=== PATIENT | male | born 1945 | race Asian ===

== ENCOUNTER 2019-10-20 10:48 | Emergency (ER) | payer MEDICARE, SELFPAY ==
--- NOTE | 2019-10-20 11:01 | ED.GENADULT ---
HPI - General Adult General Chief complaint: Wound/Laceration Stated complaint: Bee stung Time Seen by Provider: 10/20/19 11:16 Source: patient Mode of arrival: ambulatory Limitations: no limitations History of Present Illness HPI narrative: 74-year-old male patient presents to the [facility] with complaints of left middle finger swelling and pain. Patient states that he was stung twice by a bee about 2 days ago. Patient denies taking any medications for his symptoms so far. Patient states he is concerned because he there is some more bruising noted, swelling and tightness to the finger. Denies any fevers, body aches or chills. Related Data Home Medications Medication Instructions Recorded Confirmed omeprazole 20 mg PO BID 10/20/19 10/20/19 Review of Systems Review of Systems: Narrative: CONSTITUTIONAL: Denies fever, chills, or sweats. EYES: Denies visual changes, redness, or discharge. ENT: Denies rhinorrhea, congestion, sore throat, or otalgia. CARDIOVASCULAR: Denies chest pain, palpitations, or edema. RESPIRATORY: Denies cough or dyspnea. GASTROINTESTINAL: Denies abdominal pain, nausea, vomiting, or diarrhea. GENITOURINARY: Denies dysuria or hematuria. SKIN: Denies rash or itching. Positive swelling, pain and bruising to left middle finger from bee stings x2 days MUSCULOSKELETAL: Denies back pain, joint pain, or myalgia. NEUROLOGIC: Denies headache, numbness, or weakness. PSYCHIATRIC: Denies anxiety or depression. Exam Narrative: Exam Narrative: GENERAL: Well-appearing, well-nourished, and in no acute distress. HEAD: Normocephalic, atraumatic. EYES: PERRLA and EOMI. ENT: Nares clear, no rhinorrhea or epistaxis. Mucous membranes moist. NECK: Supple. No lymphadenopathy CHEST: Clear to auscultation. No respiratory distress. HEART: Regular rate and rhythm. No murmur heard. Normal peripheral pulses. ABDOMEN: Soft, nontender, nondistended, normal active bowel sounds. EXTREMITIES: Normal range of motion. No edema. SKIN: Patient has swelling and tightness noted to the left middle finger that includes the DIP and PIP joints of the middle finger. The swelling and tightness extend all the way down to the proximal phalanges but does not include the MCP joint of the middle finger. There is some bruising noted to the side of the distal and middle phalanges. There is some warmth noted to the area along with some erythema. NEURO: No focal deficits. Alert and oriented x3. Course Vital Signs Vital signs: Vital Signs Temperature 36.2 C L 10/20/19 11:06 Pulse Rate 78 10/20/19 11:06 Respiratory Rate 16 10/20/19 11:06 Blood Pressure 130/75 10/20/19 11:06 Pulse Oximetry 99 10/20/19 11:06 Temperature 36.2 C L 10/20/19 11:06 Pulse Rate 78 10/20/19 11:06 Respiratory Rate 16 10/20/19 11:06 Blood Pressure 130/75 10/20/19 11:06 Pulse Oximetry 99 10/20/19 11:06 Vital signs reviewed. Medical Decision Making Differential Diagnosis Differential Diagnosis: Differential diagnosis: Abscess, cellulitis, hidradenitis, laceration, puncture wound. Discussed with patient that I am concerned that there could be some cellulitis possibly starting to the middle finger due to the warmth, erythema and swelling. Discussed with him we will go ahead and start him on an antibiotic for this and I will also give him an antihistamine to help with the reaction. Discussed with him he can also take some Benadryl if the reaction continues to get worse, use [id number] anti-itch cream. Discussed with him that he can use ice to the area to help with the swelling and pain as well. Patient verbalized understanding denies any other questions or concerns at this time. Vital Signs Vital Signs: Vital Signs Temperature 36.2 C L 10/20/19 11:06 Pulse Rate 78 10/20/19 11:06 Respiratory Rate 16 10/20/19 11:06 Blood Pressure 130/75 10/20/19 11:06 Pulse Oximetry 99 10/20/19 11:06 Temperature 36.2 C L 10/20/19 11
[2019-10-20 11:06] VITALS: BP 130/75; PULSE 78; RESP 16; TEMP 36.2; O2SAT 99
== END 2019-10-20 11:25 | disposition home or self-care (01) ==
PROVIDERS: Emergency Provider Nurse Practitioner Family
DX: L03.012 Cellulitis of left finger (principal); T63.441A Toxic effect of venom of bees, accidental (unintentional), initial encounter
CPT/HCPCS: 99213; G0463

== ENCOUNTER 2020-02-04 08:26 | Outpatient (CLI) | payer MEDICARE, SELFPAY ==
--- NOTE | 2020-02-04 | ECHO_ITS ---
Patient Info Name: Jr Villalobos Age: 74 years : 1945 Gender: Male Ht: 70 in Wt: 160 lbs BSA: 1.89 m2 HR: 66 bpm BP: 136 / 82 mmHg Heart Rhythm: Sinus Rhythm Technical Quality: Good Exam Date: 02/04/2020 9:10 AM Exam Location: [facility] Pul[facility] Patient Status: Outpatient Admit Date: 02/04/2020 Staff Ordering Physician: Mike Carr MD Customer Relations Coordinator: Dayne Patel RDCS, RT Attending Provider: Mike Carr MD Referring Physician: Bruno OLSON; Exam Type: CA echo doppler color flow Study Info Indications R01.1 - Cardiac murmur, unspecified Complete two-dimensional, color flow and Doppler transthoracic echocardiogram is performed. Strain analysis performed. Summary 1. Complete two-dimensional, color flow and Doppler transthoracic echocardiogram is performed. 2. There is mild concentric increased left ventricular wall thickness. 3. Left ventricular systolic function is normal, estimated at 60-65%. 4. There is severe aortic valve stenosis with a peak velocity of 357 cm/s, mean gradient of 30 mmHg, and aortic valve area of 0.8 cm2. 5. There is mild aortic valve regurgitation. Left Ventricle Left ventricular chamber dimension is normal. Left ventricular systolic function is normal, estimated at 60-65%. There is mild concentric increased left ventricular wall thickness. The left ventricular diastolic function is grade I diastolic dysfunction. Right Ventricle Right ventricular chamber dimension is normal. Left Atria Left atrial chamber dimension is normal. Right Atria Right atrial chamber dimension is normal. Aortic Valve The aortic valve is trileaflet. There is severe aortic valve stenosis with a peak velocity of 357 cm/s, mean gradient of 30 mmHg, and aortic valve area of 0.8 cm2. There is mild aortic valve regurgitation. Pulmonic Valve The pulmonic valve is not well visualized. Mitral Valve The mitral valve has normal leaflets. There is trace mitral valve regurgitation. The mitral valve annulus is mildly calcified. Tricuspid Valve The tricuspid valve leaflets are normal. There is trace tricuspid valve regurgitation. Pericardium/Pleural The pericardium appears normal. Aorta The aortic root size at the sinus of Valsalva is normal. Left Ventricular Outflow Tract Name Value Normal LVOT 2D LVOT Diameter 2.2 cm LVOT Doppler LVOT Peak Gradient 2 mmHg LVOT Mean Gradient 2 mmHg LVOT VTI 21 cm LVOT VTI/AV VTI Ratio 0.3 LVOT Stroke Volume 83 ml LVOT CO 5.0 l/min LVOT CI 2.6 l/min/m2 Mitral Valve Name Value Normal MV Doppler MV Decel Aiken 195 cm/s2 MV PHT
== END 2020-02-04 08:27 | disposition home or self-care (01) ==
PROVIDERS: PCP Emergency Medicine; Visit Provider Emergency Medicine
DX: R01.1 Cardiac murmur, unspecified (principal); I35.0 Nonrheumatic aortic (valve) stenosis; I35.1 Nonrheumatic aortic (valve) insufficiency
CPT/HCPCS: 93306

== ENCOUNTER 2020-03-18 07:54 | Outpatient (CLI) | payer MEDICARE, SELFPAY ==
[2020-03-18 09:00] LABS: Prostate Specific Antigen 0.9 ng/mL (< OR = 4.0)
== END 2020-03-18 07:55 | disposition home or self-care (01) ==
PROVIDERS: PCP Emergency Medicine
DX: N40.1 Benign prostatic hyperplasia with lower urinary tract symptoms (principal)
CPT/HCPCS: 36415; 84153

== ENCOUNTER 2020-04-28 13:31 | Outpatient (CLI) | payer MEDICARE, SELFPAY | END 2020-04-28 13:32 | disposition home or self-care (01) | LOC: ANHCOVIDVC 13:32 | PROVIDERS: PCP Emergency Medicine; Visit Provider Emergency Medicine | DX: Z23 Encounter for immunization (principal) | CPT/HCPCS: 0001A; 91300 ==

== ENCOUNTER 2020-05-19 13:32 | Outpatient (CLI) | payer MEDICARE, SELFPAY | END 2020-05-19 13:33 | disposition home or self-care (01) | LOC: ANHCOVIDVC 13:32 | PROVIDERS: PCP Emergency Medicine; Visit Provider Emergency Medicine | DX: Z23 Encounter for immunization (principal) | CPT/HCPCS: 0002A; 91300 ==

== ENCOUNTER → 2020-07-12 01:51 | Outpatient (CLI) | payer MEDICARE, SELFPAY ==
[2020-07-12 19:56] LABS: SARS-CoV-2 RNA PCR Negative
== END ==
PROVIDERS: PCP Emergency Medicine; Visit Provider Internal Medicine Gastroenterology
DX: Z01.812 Encounter for preprocedural laboratory examination (principal); Z20.822 Contact with and (suspected) exposure to COVID-19
CPT/HCPCS: C9803; U0003; U0005

== ENCOUNTER 2020-07-16 01:45 | Day surgery (SDC) | payer MEDICARE, SELFPAY ==
[2020-07-07 14:32] VITALS: BMI 23.1
[2020-07-16 08:21] VITALS: BP 123/72; PULSE 66; RESP 20; TEMP 36.6; O2SAT 99; BMI 23.1
--- NOTE | 2020-07-16 08:33 | WPDANESEPPF ---
Anes - Initial Pre Proc Eval Procedure: Operation Date: 07/16/20 09:00 Proposed Procedures p Esophagogastroduodenoscopy & Screen Colonoscopy - Chuck Stock MD Date/Time: 07/16/20 08:33 Surgeon: Chuck Stock MD Pre Op Diagnosis: hx of colon polyps, gerd Patient Data Age: 75 Gender: M Height: 5 ft 10 in Weight: 73.3 kg Last Vital Signs Temp 98 F 07/16/20 08:21 Pulse 66 07/16/20 08:21 Resp 20 07/16/20 08:21 BP 123/72 07/16/20 08:21 Pulse Ox 99 07/16/20 08:21 Allergies Allergy/AdvReac Type Severity Reaction Status Date / Time No Known Allergies Allergy Verified 07/16/20 08:20 Home Medications Medication Instructions Recorded Confirmed Type omeprazole 20 mg PO BID 10/20/19 07/16/20 History atorvastatin 80 mg tablet 80 mg PO DAILY 01/21/20 07/16/20 History lisinopril 20 mg tablet 20 mg PO DAILY 01/21/20 07/16/20 History tamsulosin 0.4 mg capsule 0.4 mg PO DAILY 04/18/20 07/16/20 History aspirin [Adult Aspirin EC Low 81 mg PO DAILY 07/07/20 07/16/20 History Strength] Patient hx anesthesia problems: none Family hx anesthesia problems: none PMFSH Past Medical History Medical History (Updated 07/08/20 @ 12:07 by WILLIAM Marquez) Colon cancer screening Dizziness High cholesterol Medial meniscus tear Nonrheumatic aortic (valve) stenosis Phlegm in throat Right knee pain Stroke Wears glasses Social History Social History (Updated 07/08/20 @ 08:27 by Jeanne Funk, RT(R)) Smoking packs per day: 1 Smoking cigarettes per day: 20.0 Smoking status: Former smoker Tobacco type: cigarettes Smoking end date: 02/21/85 Alcohol intake: current Drinks per week: 4 Alcohol use details: WINE Substance use: never Substance use type: does not use Living arrangements: with family Gender identity (if verbalized by the patient): Male Spiritual care concerns: No Anes - Eval Final PreProcedure Day of Procedure 07/16/20 08:33 Patient weight: normal Heart: regular rate and rhythm and murmur Lungs: clear to auscultation Airway: Mallampati scale Neurological: alert and oriented Last oral intake: >/= 8 hours ASA classification: III Emergent: no Anesthetic plan: proceed Anesthesia type and monitoring: general GIVS and standard monitoring Informed Consent: The patient's anesthetic plan and its attendant risks and benefits were discussed with the patient/family/POA. Questions were solicited and answers provided to the satisfaction of the patient/family/POA.
[2020-07-16] MEDS: LACTATED RINGERS 1,000 ML 150 ML IV CONT (08:42)
--- NOTE | 2020-07-16 08:47 | PM.HPGS ---
History of Present Illness History of Present Illness Consent: Risks, benefits, and alternatives have been discussed and questions answered. Patient agrees to proceed with procedure. Chief complaint: hx of colon polyps, gerd Narrative: Jr Villalobos is a 75 year old male with gerd on omeprazole, also history of colon polyps due for another colonoscopy Review of Systems Constitutional: Constitutional: Denies headache(s) and Denies weakness Eyes: Eyes: Denies blurry vision ENT: Reports Normal hearing present, Denies headache(s) and Denies neck pain Cardiovascular: Cardiovascular: Denies chest pain and Denies dyspnea Respiratory: Respiratory: Denies dyspnea Gastrointestinal: Gastrointestinal: Reports no additional gastrointestinal complaints Genitourinary: Genitourinary: Denies dysuria Musculoskeletal: Musculoskeletal: Denies neck pain Integumentary/Breasts: Skin/Breast: Denies dry skin Neurologic: Reports Normal hearing present, Denies headache(s) and Denies weakness Psychiatric: Psychiatric: Denies anxiety Endocrine: Endocrine: Denies change in body appearance Hematologic/Lymphatic: Hematologic/Lymphatic: Denies easy bleeding Allergic/Immunologic: Allergic/Immunologic: Denies urticaria PMF Past Medical History Medical History (Updated 07/16/20 @ 08:47 by Chuck Stock MD) Colon cancer screening Dizziness GERD (gastroesophageal reflux disease) High cholesterol Medial meniscus tear Nonrheumatic aortic (valve) stenosis Phlegm in throat Right knee pain Stroke Wears glasses Social History Social History (Updated 07/08/20 @ 08:27 by Jeanne Funk, RT(R)) Smoking packs per day: 1 Smoking cigarettes per day: 20.0 Smoking status: Former smoker Tobacco type: cigarettes Smoking end date: 02/21/85 Alcohol intake: current Drinks per week: 4 Alcohol use details: WINE Substance use: never Substance use type: does not use Living arrangements: with family Gender identity (if verbalized by the patient): Male Spiritual care concerns: No Meds Home Medications and Allergies Home Medications Medication Instructions Recorded Confirmed Type omeprazole 20 mg PO BID 10/20/19 07/16/20 History atorvastatin 80 mg tablet 80 mg PO DAILY 01/21/20 07/16/20 History lisinopril 20 mg tablet 20 mg PO DAILY 01/21/20 07/16/20 History tamsulosin 0.4 mg capsule 0.4 mg PO DAILY 04/18/20 07/16/20 History aspirin [Adult Aspirin EC Low 81 mg PO DAILY 07/07/20 07/16/20 History Strength] Allergies Allergy/AdvReac Type Severity Reaction Status Date / Time No Known Allergies Allergy Verified 07/16/20 08:20 Vital Signs Vital Signs - 24 hr 07/16/20 08:21 Temperature 98 F Pulse Rate 66 Respiratory Rate 20 Blood Pressure 123/72 Pulse Oximetry 99 Exam Const: General: comfortable and no acute distress HENMT: General nose exam: Normal nares present Eyes: General: appearance normal, both eyes and all related structures Neck: Neck: no JVD Resp: Auscultation: clear to auscultation bilaterally Cardio: Rate: regular rate Rhythm: regular rhythm GI: Inspection: non-distended GI Palp: Yes Soft to palpation Skin: General skin exam: normal color Neuro: General: gait normal Speech: normal speech Extrem: General: normal to inspection Psych: Mental Status: mental status grossly normal Assessment and Plan Assessment and plan (1) GERD (gastroesophageal reflux disease): Code(s): K21.9 - Gastro-esophageal reflux disease without esophagitis Status: Acute Assessment and Plan: egd (2) Colon cancer screening: Code(s): Z12.11 - Encounter for screening for malignant neoplasm of colon Status: Acute Assessment and Plan: colonoscopy
[2020-07-16] MEDS: BENZOCAINE (*SP) 60 ML SPRAY CAN (HURRICAINE) 1 SPRAY MUCOUS MEM (08:53)
[2020-07-16 09:15] VITALS: BP 118/67; PULSE 60; RESP 16; O2SAT 99
[2020-07-16 09:25] VITALS: BP 136/81; PULSE 67; RESP 18; O2SAT 99
[2020-07-16 09:35] VITALS: BP 137/71; PULSE 62; RESP 14; O2SAT 99
== END 2020-07-16 09:48 | disposition home or self-care (01) ==
PROVIDERS: PCP Emergency Medicine; Visit Provider Internal Medicine Gastroenterology
PROC: 0DJ08ZZ Inspection of Upper Intestinal Tract, Via Natural or Artificial Opening Endoscopic (ICD-10-PCS; CPT 43235; principal; 2020-07-16 09:00)
DX: Z12.11 Encounter for screening for malignant neoplasm of colon (principal); D12.3 Benign neoplasm of transverse colon; D12.5 Benign neoplasm of sigmoid colon; K57.30 Diverticulosis of large intestine without perforation or abscess without bleeding; K29.50 Unspecified chronic gastritis without bleeding; K21.9 Gastro-esophageal reflux disease without esophagitis; I35.0 Nonrheumatic aortic (valve) stenosis; E78.00 Pure hypercholesterolemia, unspecified; Z86.73 Personal history of transient ischemic attack (TIA), and cerebral infarction without residual deficits; Z87.891 Personal history of nicotine dependence; Z86.010 Personal history of colon polyps
CPT/HCPCS: 45385; 43239; 88305; J2001; J2704; J7120

== ENCOUNTER → 2020-07-18 13:32 | Outpatient (CLI) | payer MEDICARE, SELFPAY ==
--- NOTE | ~2020-07-18 | MR_ITS ---
EXAMINATION: MR knee RT wo con DATE: 07/18/2020 14:46 INDICATION: 6 months of medial right knee pain TECHNIQUE: Magnetic resonance imaging (MRI) of the right knee was performed without intravenous contr ast. Sequences included coronal PD-weighted FSE, coronal PD-weighted FS FSE, sagittal T2-weighted FS E, sagittal PD-weighted FS FSE and axial PD weighted fat saturated FSE. COMPARISON: Right knee radiographs dated 07/07/2020 FINDINGS: Medial compartment: Longitudinal horizontal tear extending to the inferior articular surface of the body and posterior ho rn of the medial meniscus. There is complex at the meniscal body with a secondary vertically oriented radial versus parrot beak configuration tear plane. Diffuse partial thickness cartilage loss with sm ooth chondral surface throughout all but the posterior most weightbearing medial femoral condyle. Sma ll region of deep chondral ulceration with minimal underlying cortical irregularity at the posterior weightbearing medial femoral condyle. Partial thickness chondral ulceration with underlying subarticu lar cystic change and edema at the medial rim of the medial tibial plateau in the region of the compl ex meniscal tear. Lateral compartment: Lateral meniscus is normal. Articular cartilage is normal. Patellofemoral compartment: Articular cartilage is normal. Ligaments and tendons: Anterior and posterior cruciate ligaments are normal. Medial collateral ligament is normal. Mild thic kening and increased signal without surrounding edema at the proximal fibular collateral ligament con sistent with mild scarring related to chronic sprain. The extensor mechanism is normal. The visualize d medial and lateral hamstring tendons as well as the iliotibial band are normal. Fluid: Physiologic amount of fluid in the joint space. No loose osteochondral bodies identified. Osseous/other: Normal marrow signal siphon the previous noted mild subarticular edema at the medial tibial plateau. No fracture or pathologic marrow replacing process. IMPRESSION: 1. Complex medial meniscal tear. 2. 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 3. Mild scarring consistent with chronic sprain at the proximal fibular collateral ligament. Reviewed, dictated and finalized at location A. IMPRESSION: 1. Complex medial meniscal tear. 2. 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 3. Mild scarring consistent with chronic sprain at the proximal fibular collate ral ligament.
== END ==
PROVIDERS: PCP Emergency Medicine; Visit Provider Nurse Practitioner Family
DX: S83.241A Other tear of medial meniscus, current injury, right knee, initial encounter (principal); M17.11 Unilateral primary osteoarthritis, right knee
CPT/HCPCS: 73721

== ENCOUNTER 2020-08-07 12:38 | Outpatient (CLI) | payer MEDICARE, SELFPAY ==
--- NOTE | 2020-08-07 12:50 | ECHO_ITS ---
Patient Info Name: Jr Villalobos Age: 75 years : 1945 Gender: Male Ht: 70 in Wt: 160 lbs BSA: 1.89 m2 HR: 61 bpm BP: 148 / 77 mmHg Technical Quality: Good Exam Date: 08/07/2020 1:25 PM Exam Location: [facility] Patient Status: Outpatient Admit Date: 08/07/2020 Staff Ordering Physician: Dalton Su DO Headwaiter/Headwaitress: Michelle Garces RDCS Attending Provider: Dalton Su DO Referring Physician: Georges IRVING; Exam Type: CA echo dop color flow w con Study Info Indications - NON RHEUMATIC AORTIC VALVE STENOSIS Complete two-dimensional, color flow and Doppler transthoracic echocardiogram is performed. Summary 1. Complete two-dimensional, color flow and Doppler transthoracic echocardiogram is performed. 2. Left ventricular chamber dimension is normal. 3. Left ventricular systolic function is normal, estimated at 60-65%. 4. There is mildly increased left ventricular wall thickness. 5. The left ventricular diastolic function is grade I diastolic dysfunction. 6. E/e' 14 is mildly elevated. 7. Global longitudinal strain is normal at -17.9%. 8. Left atrial chamber dimension is mildly enlarged. 9. Right atrial chamber dimension is mildly enlarged. 10. There is severe aortic valve sclerosis. 11. There is mild aortic valve regurgitation. 12. There is severe aortic valve stenosis with a peak velocity of 363.19 cm/s, mean gradient of 37 mmHg, and aortic valve area of 1.09 cm2. The valve appears to be more stenotic than the measured valve area. 13. The mitral valve has moderately calcified annulus. 14. There is mild mitral valve regurgitation. 15. There is trace tricuspid valve regurgitation. 16. No pulmonary hypertension, estimated pulmonary arterial systolic pressure is 23 mmHg. Left Ventricle E/e' 14 is mildly elevated. Global longitudinal strain is normal at -17.9%. Left ventricular chamber dimension is normal. Left ventricular systolic function is normal, estimated at 60-65%. There is mildly increased left ventricular wall thickness. The left ventricular diastolic function is grade I diastolic dysfunction. Right Ventricle Right ventricular chamber dimension is normal. Right ventricular systolic function is normal. Left Atria Left atrial chamber dimension is mildly enlarged. Right Atria Right atrial chamber dimension is mildly enlarged. Aortic Valve There is severe aortic valve stenosis with a peak velocity of 363.19 cm/s, mean gradient of 37 mmHg, and aortic valve area of 1.09 cm2. The valve appears to be more stenotic than the measured valve area. The aortic valve is not well visualized. There is severe aortic valve sclerosis. There is mild aortic valve regurgitation. Pulmonic Valve There is no pulmonic regurgitation. Mitral Valve The mitral valve has moderately calcified annulus. There is no mitral valve stenosis. There is mild mitral valve regurgitation. Tricuspid Valve There is trace tricuspid valve regurgitation. No pulmonary hypertension, estimated pulmonary arterial systolic pressure is 23 mmHg. Pericardium/Pleural There is no pericardial effusion. Inferior Vena Cava Normal inferior vena cava with >50% collapse upon inspiration consistent with normal right atrial pressure, 5 mmHg. Aorta The aortic root size at the sinus of Valsalva is normal. Left Ventricular Outflow Tract Name Value Normal
== END 2020-08-07 12:39 | disposition home or self-care (01) ==
PROVIDERS: PCP Emergency Medicine; Visit Provider Internal Medicine Cardiovascular Disease
DX: I35.0 Nonrheumatic aortic (valve) stenosis (principal); I35.8 Other nonrheumatic aortic valve disorders; I35.1 Nonrheumatic aortic (valve) insufficiency; I34.0 Nonrheumatic mitral (valve) insufficiency
CPT/HCPCS: C8929

== ENCOUNTER 2020-11-17 08:51 | Outpatient (CLI) | payer MEDICARE, SELFPAY ==
[2020-11-17 09:17] LABS: Add Urine Microscopic? YES; Appearance Urine Clear (Clear); Bilirubin Urine Negative (Negative); Blood Urine Negative (Negative); Color Urine Yellow (Yellow); Glucose Urine UA Negative (Negative); Ketones Urine Negative (Negative); Leukocyte Esterase Ur Negative LEU/UL (NEGATIVE); Mucus Urine Rare /lpf; Nitrate Urine Negative (Negative); Protein Urine Negative (Negative); RBC Urine 0-2 /hpf (0-2); Specific Grav Ur 1.017 (1.001-1.035); Squamous Epithelial Cell Urine Rare /hpf (Few); Urobilinogen Urine Negative mg/dL (<2.0); WBC Urine 0-3 /hpf (0-3)
[2020-11-17 09:25] LABS: Alanine Aminotransferase 50 U/L (4-50); Albumin Level 4.5 g/dL (3.5-5.1); Alkaline Phosphatase 52 U/L (38-126); Anion Gap 6 mmol/L (8-16); Aspartate Amino Transferase 32 U/L (17-59); Bilirubin,Total 1.2 mg/dL (0.2-1.3); Blood Urea Nitrogen 16 mg/dL (9-20); Calcium 8.8 mg/dL (8.4-10.2); Carbon Dioxide 27 mmol/L (22-30); Chloride 105 mmol/L (98-107); Estimated Glomerular Filt Rate > 60; Glucose 105 mg/dL (65-110); Potassium 4.4 mmol/L (3.4-5.0); Sodium 138 mmol/L (137-145)
== END 2020-11-17 08:52 | disposition home or self-care (01) ==
PROVIDERS: PCP Family Medicine; Visit Provider Family Medicine
DX: E78.5 Hyperlipidemia, unspecified (principal); R82.81 Pyuria
CPT/HCPCS: 36415; 80053; 81001

== ENCOUNTER 2021-02-23 12:47 | Outpatient (CLI) | payer MEDICARE, SELFPAY ==
--- NOTE | 2021-02-23 13:03 | ECHO_ITS ---
Patient Info Name: Jr Villalobos Age: 75 years : 1945 Gender: Male Ht: 70 in Wt: 165 lbs BSA: 1.93 m2 HR: 58 bpm BP: 147 / 77 mmHg Exam Date: 02/23/2021 1:15 PM Exam Location: [facility] Pul[facility] Patient Status: Outpatient Admit Date: 02/23/2021 Staff Ordering Physician: Dalton Su DO Drafter Apprentice: Dayne Patel, VICKIE, RT Attending Provider: Dalton Su DO Referring Physician: Georges IRVING; Exam Type: CA echo doppler color flow Study Info Indications I35.8 - Other nonrheumatic aortic valve disorders Complete two-dimensional, color flow and Doppler transthoracic echocardiogram is performed. Strain analysis performed. Summary 1. Complete two-dimensional, color flow and Doppler transthoracic echocardiogram is performed. 2. Left ventricular chamber dimension is normal. 3. Left ventricular systolic function is normal, estimated at 60-65%. 4. There is moderately increased left ventricular wall thickness. 5. The left ventricular diastolic function is normal. 6. E/e' 9 is minimally elevated. 7. Global longitudinal strain is abnormal at -13.9%. 8. Left atrial chamber dimension is mildly enlarged. 9. There is severe aortic valve sclerosis. 10. There is severe aortic valve stenosis with a peak velocity of 375 cm/s, mean gradient of 28 mmHg, and aortic valve area of 0.9 cm2. 11. There is mild aortic valve regurgitation. 12. The mitral valve has moderately calcified annulus. 13. Dilated inferior vena cava with >50% collapse upon inspiration consistent with elevated right atrial pressure, 10 mmHg. Left Ventricle E/e' 9 is minimally elevated. Global longitudinal strain is abnormal at -13.9%. Left ventricular chamber dimension is normal. Left ventricular systolic function is normal, estimated at 60-65%. There is moderately increased left ventricular wall thickness. The left ventricular diastolic function is normal. Right Ventricle Right ventricular systolic function is normal and with normal TAPSE 2.4 cm. Right ventricular chamber dimension is normal. Left Atria Left atrial chamber dimension is mildly enlarged. Right Atria Right atrial chamber dimension is normal. Aortic Valve The aortic valve is trileaflet. There is severe aortic valve sclerosis. There is severe aortic valve stenosis with a peak velocity of 375 cm/s, mean gradient of 28 mmHg, and aortic valve area of 0.9 cm2. There is mild aortic valve regurgitation. Pulmonic Valve There is no pulmonic regurgitation. Mitral Valve The mitral valve has moderately calcified annulus. There is no mitral valve stenosis. There is no mitral valve regurgitation. Tricuspid Valve There is no tricuspid valve regurgitation. Pericardium/Pleural There is no pericardial effusion. Inferior Vena Cava Dilated inferior vena cava with >50% collapse upon inspiration consistent with elevated right atrial pressure, 10 mmHg. Aorta The aortic root size at the sinus of Valsalva is normal. Left Ventricular Outflow Tract Name Value Normal LVOT 2D LVOT Diameter 2.2 cm LVOT Doppler LVOT Peak Gradient 2 mmHg LVOT Mean Gradient
== END 2021-02-23 12:48 | disposition home or self-care (01) ==
PROVIDERS: PCP Family Medicine; Visit Provider Internal Medicine Cardiovascular Disease
DX: I35.0 Nonrheumatic aortic (valve) stenosis (principal); I35.2 Nonrheumatic aortic (valve) stenosis with insufficiency
CPT/HCPCS: 93306

== ENCOUNTER 2021-03-12 08:14 | Outpatient (CLI) | payer MEDICARE, SELFPAY ==
[2021-03-12 08:49] LABS: Cholesterol 122 mg/dL (0-200); HDL Direct 47 mg/dL; Triglycerides 89 mg/dL (<150)
[2021-03-12 08:59] LABS: LDL Cholesterol Direct 51 mg/dL
== END 2021-03-12 08:15 | disposition home or self-care (01) ==
PROVIDERS: PCP Family Medicine; Visit Provider Internal Medicine Cardiovascular Disease
DX: E78.5 Hyperlipidemia, unspecified (principal)
CPT/HCPCS: 36415; 80061

== ENCOUNTER 2021-09-29 08:39 | Outpatient (CLI) | payer MEDICARE, SELFPAY ==
--- NOTE | 2021-09-29 08:54 | ECHO_ITS ---
Patient Info Name: Jr Villalobos Age: 76 years : 1945 Gender: Male Ht: 70 in Wt: 161 lbs BSA: 1.90 m2 HR: 79 bpm BP: 123 / 62 mmHg Technical Quality: Good Exam Date: 09/29/2021 9:18 AM Exam Location: [facility] Patient Status: Outpatient Admit Date: 09/29/2021 Staff Ordering Physician: Dalton Su DO Lawyer Real Estate: Amy Forde RDCS Attending Provider: Dalton Su DO Referring Physician: Georges IRVING; Exam Type: CA echo doppler color flow Study Info Indications I35.1 - Nonrheumatic aortic (valve) insufficiency Complete two-dimensional, color flow and Doppler transthoracic echocardiogram is performed. Summary 1. Complete two-dimensional, color flow and Doppler transthoracic echocardiogram is performed. 2. Left ventricular chamber dimension is normal. 3. Left ventricular systolic function is normal, estimated at 65-70%. 4. There is mildly increased left ventricular wall thickness. 5. The left ventricular diastolic function is grade I diastolic dysfunction. 6. E/e' 7 is not elevated. 7. There is severe aortic valve sclerosis. 8. There is severe aortic valve stenosis by visual estimation with a peak velocity of 399 cm/s, mean gradient of 40 mmHg, and aortic valve area of 1.2 cm2. 9. There is mild to moderate aortic valve regurgitation. 10. The mitral valve has moderately calcified annulus. 11. Dilated inferior vena cava with >50% collapse upon inspiration consistent with elevated right atrial pressure, 10 mmHg. Left Ventricle E/e' 7 is not elevated. Left ventricular chamber dimension is normal. Left ventricular systolic function is normal, estimated at 65-70%. There is mildly increased left ventricular wall thickness. The left ventricular diastolic function is grade I diastolic dysfunction. Right Ventricle Right ventricular chamber dimension is normal. Right ventricular systolic function is normal. Left Atria Left atrial chamber dimension is normal. Right Atria Right atrial chamber dimension is normal. Aortic Valve There is severe aortic valve stenosis by visual estimation with a peak velocity of 399 cm/s, mean gradient of 40 mmHg, and aortic valve area of 1.2 cm2. The aortic valve is trileaflet. There is severe aortic valve sclerosis. There is mild to moderate aortic valve regurgitation. Pulmonic Valve There is no pulmonic regurgitation. Mitral Valve The mitral valve has moderately calcified annulus. There is no mitral valve stenosis. There is no mitral valve regurgitation. Tricuspid Valve There is no tricuspid valve regurgitation. Pericardium/Pleural There is no pericardial effusion. Inferior Vena Cava Dilated inferior vena cava with >50% collapse upon inspiration consistent with elevated right atrial pressure, 10 mmHg. Aorta The aortic root size at the sinus of Valsalva is normal. Left Ventricular Outflow Tract Name Value Normal LVOT 2D LVOT Diameter 2.5 cm LVOT Doppler LVOT Peak Velocity 106 cm/s LVOT Peak Gradient 3 mmHg LVOT Mean Gradient 2 mmHg LVOT VTI
== END 2021-09-29 08:40 | disposition home or self-care (01) ==
PROVIDERS: PCP Family Medicine; Visit Provider Internal Medicine Cardiovascular Disease
DX: I35.1 Nonrheumatic aortic (valve) insufficiency (principal)
CPT/HCPCS: 93306

== ENCOUNTER 2021-11-30 07:34 | Outpatient (CLI) | payer MEDICARE, SELFPAY ==
--- NOTE | ~2021-11-30 | XR_ITS ---
EXAMINATION:[id number] DATE: 11/30/2021 08:14 INDICATION: Neck pain TECHNIQUE: AP, lateral, lateral swimmers and odontoid views of the cervical spine are provided. COMPARISON: None FINDINGS: Alignment is normal. The odontoid is intact. No fracture is identified. The vertebral body heights are normal. There is severe loss of intervertebral disc space height at C4-5 and C6-7 and mod erate loss of disc space height at C5-6. Small degenerative osteophytes project from the anterior end plates of multiple vertebral bodies. 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 Prevertebral soft tissues are normal. IMPRESSION: 1. Severe cervical spondylosis without acute findings. Reviewed, dictated and finalized at location A.
[2021-11-30 08:25] LABS: Hematocrit 39.8 % (42.0-52.0); Hemoglobin 12.8 g/dL (14.0-18.0); Mean Corpuscular HGB Conc 32.2 g/dl (32-36); Mean Corpuscular Hemoglobin 31.1 pg (26-34); Mean Corpuscular Volume 96.6 fl (80-100); Mean Platelet Volume 9.6 fl (7.4-10.4); Platelet Count Result 192 k/mm3 (150-375); Red Blood Count 4.12 M/mm3 (4.6-6.20); White Blood Count 4.8 K/mm3 (4.5-10.0)
[2021-11-30 08:38] LABS: Alanine Aminotransferase 28 U/L (6-50); Albumin Level 4.1 g/dL (3.5-5.1); Alkaline Phosphatase 72 U/L (38-126); Anion Gap 6 mmol/L (8-16); Aspartate Amino Transferase 32 U/L (17-59); Bilirubin,Total 0.9 mg/dL (0.2-1.3); Blood Urea Nitrogen 15 mg/dL (9-20); Calcium 8.9 mg/dL (8.4-10.2); Carbon Dioxide 29 mmol/L (22-30); Chloride 106 mmol/L (98-107); Cholesterol 150 mg/dL (0-200); Estimated Glomerular Filt Rate > 60; Glucose 98 mg/dL (65-110); HDL Direct 47 mg/dL; Potassium 4.4 mmol/L (3.4-5.0); Sodium 141 mmol/L (137-145); Triglycerides 84 mg/dL (<150)
[2021-11-30 08:41] LABS: Add Urine Microscopic? NO; Appearance Urine Clear (Clear); Bilirubin Urine Negative (Negative); Blood Urine Negative (Negative); Color Urine Yellow (Yellow); Glucose Urine UA Negative (Negative); Ketones Urine Negative (Negative); Leukocyte Esterase Ur Negative LEU/UL (NEGATIVE); Nitrate Urine Negative (Negative); Protein Urine Negative (Negative); Specific Grav Ur 1.011 (1.001-1.035); Urobilinogen Urine Negative mg/dL (<2.0)
[2021-11-30 08:49] LABS: LDL Cholesterol Direct 71 mg/dL
== END 2021-11-30 07:35 | disposition home or self-care (01) ==
LOC: ANHLAB 07:38
PROVIDERS: PCP Family Medicine; Visit Provider Family Medicine
DX: E78.5 Hyperlipidemia, unspecified (principal); I10 Essential (primary) hypertension; Z00.00 Encounter for general adult medical examination without abnormal findings; R53.83 Other fatigue; M47.812 Spondylosis without myelopathy or radiculopathy, cervical region
CPT/HCPCS: 36415; 72040; 80053; 80061; 81003; 84443; 85027

== ENCOUNTER 2022-04-07 14:31 | Outpatient (CLI) | payer MEDICARE, SELFPAY ==
--- NOTE | 2022-04-07 14:44 | ECHO_ITS ---
Patient Info Name: Jr Villalobos Age: 76 years : 1945 Gender: Male Ht: 70 in Wt: 160 lbs BSA: 1.89 m2 HR: 79 bpm BP: 131 / 76 mmHg Heart Rhythm: Sinus Rhythm Technical Quality: Fair Exam Date: 04/07/2022 2:51 PM Exam Location: [facility] Patient Status: Outpatient Admit Date: 04/07/2022 Staff Ordering Physician: Dalton Su DO Soft Crab Shedder: Maryellen Michaels RDCS Attending Provider: Dalton Su DO Referring Physician: Georges IRVING; Exam Type: CA echo doppler color flow Study Info Indications I35.0 - Nonrheumatic aortic (valve) stenosis Complete two-dimensional, color flow and Doppler transthoracic echocardiogram is performed. Summary 1. Complete two-dimensional, color flow and Doppler transthoracic echocardiogram is performed. 2. Left ventricular chamber dimension is normal. 3. Left ventricular systolic function is normal, estimated at 65-70%. 4. There is mildly increased left ventricular wall thickness. 5. The left ventricular diastolic function is grade I diastolic dysfunction. 6. E/e' 16 is elevated. 7. Left atrial chamber dimension is mildly enlarged. 8. The aortic valve is not well visualized. Cannot determine number of aortic valve leaflets due to significant calcification. 9. There is severe aortic valve sclerosis. 10. There is severe aortic valve stenosis with a peak velocity of 417 cm/s, mean gradient of 35 mmHg, and aortic valve area of 0.8 cm2. 11. There is mild to moderate aortic valve regurgitation. 12. The mitral valve has mildly calcified annulus. 13. There is trace mitral valve regurgitation. 14. No pulmonary hypertension, estimated pulmonary arterial systolic pressure is 24 mmHg. Left Ventricle E/e' 16 is elevated. Left ventricular chamber dimension is normal. Left ventricular systolic function is normal, estimated at 65-70%. There is mildly increased left ventricular wall thickness. The left ventricular diastolic function is grade I diastolic dysfunction. Right Ventricle Right ventricular systolic function is normal and with normal TAPSE 2.4 cm. Right ventricular chamber dimension is normal. Left Atria Left atrial chamber dimension is mildly enlarged. Right Atria Right atrial chamber dimension is normal. Aortic Valve The aortic valve is not well visualized. Cannot determine number of aortic valve leaflets due to significant calcification. There is severe aortic valve sclerosis. There is severe aortic valve stenosis with a peak velocity of 417 cm/s, mean gradient of 35 mmHg, and aortic valve area of 0.8 cm2. There is mild to moderate aortic valve regurgitation. Pulmonic Valve There is no pulmonic regurgitation. Mitral Valve The mitral valve has mildly calcified annulus. There is no mitral valve stenosis. There is trace mitral valve regurgitation. Tricuspid Valve There is no tricuspid valve regurgitation. No pulmonary hypertension, estimated pulmonary arterial systolic pressure is 24 mmHg. Pericardium/Pleural There is no pericardial effusion. Inferior Vena Cava Normal inferior vena cava with >50% collapse upon inspiration consistent with normal right atrial pressure, 5 mmHg. Aorta The aortic root size at the sinus of Valsalva is normal. Left Ventricular Outflow Tract Name Value Normal LVOT 2D
== END 2022-04-07 14:32 | disposition home or self-care (01) ==
LOC: ANHCARD 14:33
PROVIDERS: PCP Family Medicine; Visit Provider Internal Medicine Cardiovascular Disease
DX: I35.0 Nonrheumatic aortic (valve) stenosis (principal); I34.0 Nonrheumatic mitral (valve) insufficiency; I35.1 Nonrheumatic aortic (valve) insufficiency
CPT/HCPCS: 93306

== ENCOUNTER 2022-05-19 08:50 | Outpatient (CLI) | payer MEDICARE, SELFPAY ==
[2022-05-19 09:31] LABS: Alanine Aminotransferase 29 U/L (6-50); Albumin Level 4.3 g/dL (3.5-5.1); Alkaline Phosphatase 58 U/L (38-126); Anion Gap 2 mmol/L (8-16); Aspartate Amino Transferase 32 U/L (17-59); Bilirubin,Total 1.2 mg/dL (0.2-1.3); Blood Urea Nitrogen 11 mg/dL (9-20); Calcium 9.1 mg/dL (8.4-10.2); Carbon Dioxide 33 mmol/L (22-30); Chloride 105 mmol/L (98-107); Estimated Glomerular Filt Rate > 60; Glucose 94 mg/dL (65-110); Potassium 4.4 mmol/L (3.4-5.0); Sodium 140 mmol/L (137-145)
== END 2022-05-19 08:51 | disposition home or self-care (01) ==
PROVIDERS: PCP Family Medicine; Visit Provider Family Medicine
DX: I10 Essential (primary) hypertension (principal)
CPT/HCPCS: 36415; 80053

== ENCOUNTER 2022-09-22 12:34 | Outpatient (CLI) | payer MEDICARE, SELFPAY ==
--- NOTE | 2022-09-22 12:39 | ECHO_ITS ---
Patient Info Name: Jr iVllalobos Age: 77 years : 1945 Gender: Male Ht: 70 in Wt: 160 lbs BSA: 1.89 m2 HR: 65 bpm BP: 136 / 74 mmHg Heart Rhythm: Sinus Rhythm Technical Quality: Good Exam Date: 09/22/2022 12:59 PM Exam Location: [facility] Patient Status: Outpatient Admit Date: 09/22/2022 Staff Ordering Physician: Dalton Su DO Bell Spinner Sousaphones: Maryellen Michaels RDCS Attending Provider: Dalton Su DO Referring Physician: Georges IRVING; Exam Type: CA echo doppler color flow Study Info Indications I35.0 - Nonrheumatic aortic (valve) stenosis Complete two-dimensional, color flow and Doppler transthoracic echocardiogram is performed. Summary 1. Complete two-dimensional, color flow and Doppler transthoracic echocardiogram is performed. 2. Left ventricular chamber dimension is normal. 3. Left ventricular systolic function is normal, estimated at 60-65%. 4. There is mild concentric increased left ventricular wall thickness. 5. The left ventricular diastolic function is abnormal. 6. E/e' 10 is mildly elevated. 7. Left atrial chamber dimension is mildly enlarged. 8. Right atrial chamber dimension is mildly enlarged. 9. There is severe aortic valve sclerosis. 10. There is severe aortic valve stenosis with a peak velocity of 417 cm/s, mean gradient of 44 mmHg, and aortic valve area of 0.7 cm2. 11. There is mild aortic valve regurgitation. 12. The mitral valve has mildly calcified annulus. 13. There is trace mitral valve regurgitation. 14. There is trace tricuspid valve regurgitation. 15. No pulmonary hypertension, estimated pulmonary arterial systolic pressure is 23 mmHg. Left Ventricle E/e' 10 is mildly elevated. Left ventricular chamber dimension is normal. Left ventricular systolic function is normal, estimated at 60-65%. There is mild concentric increased left ventricular wall thickness. The left ventricular diastolic function is abnormal. Right Ventricle Right ventricular systolic function is normal and with normal TAPSE 2.7 cm. Right ventricular chamber dimension is normal. Left Atria Left atrial chamber dimension is mildly enlarged. Right Atria Right atrial chamber dimension is mildly enlarged. Aortic Valve The aortic valve is trileaflet. There is severe aortic valve sclerosis. There is severe aortic valve stenosis with a peak velocity of 417 cm/s, mean gradient of 44 mmHg, and aortic valve area of 0.7 cm2. There is mild aortic valve regurgitation. Pulmonic Valve There is no pulmonic regurgitation. Mitral Valve The mitral valve has mildly calcified annulus. There is no mitral valve stenosis. There is trace mitral valve regurgitation. Tricuspid Valve There is trace tricuspid valve regurgitation. No pulmonary hypertension, estimated pulmonary arterial systolic pressure is 23 mmHg. Pericardium/Pleural There is no pericardial effusion. Inferior Vena Cava Normal inferior vena cava with >50% collapse upon inspiration consistent with normal right atrial pressure, 5 mmHg. Aorta The aortic root size at the sinus of Valsalva is normal. Left Ventricular Outflow Tract Name Value Normal LVOT 2D LVOT Diameter 2.3 cm LVOT Doppler LVOT Peak Gradient 2 mmHg
== END 2022-09-22 12:35 | disposition home or self-care (01) ==
LOC: ANHCARD 12:35
PROVIDERS: PCP Family Medicine; Visit Provider Internal Medicine Cardiovascular Disease
DX: I35.0 Nonrheumatic aortic (valve) stenosis (principal); R93.1 Abnormal findings on diagnostic imaging of heart and coronary circulation; I51.7 Cardiomegaly
CPT/HCPCS: 93306

== ENCOUNTER 2022-10-22 04:03 | Day surgery (SDC) | payer MEDICARE, SELFPAY ==
[2022-10-21 14:50] VITALS: BMI 23.0
[2022-10-22] VITALS (11 sets, daily range): BP systolic 132–169; BP diastolic 56–76; PULSE 58–75; RESP 12–20; TEMP 36.1; O2SAT 96–100; BMI 22.7
--- NOTE | 2022-10-22 11:10 | ECHO_ITS ---
Patient Info Name: Jr Villalobos Age: 77 years : 1945 Gender: Male Ht: 70 in Wt: 160 lbs BSA: 1.89 m2 Technical Quality: Good Exam Date: 10/22/2022 11:52 AM Exam Location: [facility] Patient Status: Outpatient Admit Date: 10/22/2022 Staff Ordering Physician: Dalton Su DO Watch Supervisor: Rosalina Gaytan RDCS Attending Provider: Dalton uS DO Referring Physician: Georges IRVING; Exam Type: CA echo transesophageal Study Info Indications I35.0 - Nonrheumatic aortic (valve) stenosis Complete two-dimensional, color flow and Doppler transesophageal study is performed. Procedure Details Risks/benefits to STERLING was disussed with patient and he is agreeable to procedure. He was monitored electrocardiographically, vitals and pulse ox, and they remained stable. He was given cetacaine spray x 2 to posterior oropharynx. Given Fentanyl 25 mcg and 2 mg Versed IV for conscious sedation. Probe advanced and he swallowed it without incident. Multiple images obtained at various levels of esophagul. Agitated saline given. STERLING probe withdrawn and no blood noted on STERLING probe tip. He tolerated procedure well with no complications. Summary 1. Transeophageal echocardiogram. 2. Left ventricular chamber dimension is normal. 3. There is moderate concentric increased left ventricular wall thickness. 4. Left ventricular systolic function is normal with an ejection fraction of 65-70% by visual estimation. 5. The left ventricular diastolic function is indeterminate ast it was not assessed.. 6. Left atrial chamber dimension is mildly enlarged. 7. Right atrial chamber dimension is mildly enlarged. 8. The aortic valve is bicuspid. 9. There is severe aortic valve sclerosis. 10. There is severe aortic valve stenosis with valve area of 0.9 cm2 by planimetry, and significant turbulent flow. 11. There is moderate aortic valve regurgitation. 12. There is mild mitral valve regurgitation. Left Ventricle Left ventricular systolic function is normal with an ejection fraction of 65-70% by visual estimation. Transeophageal echocardiogram. Left ventricular chamber dimension is normal. There is moderate concentric increased left ventricular wall thickness. The left ventricular diastolic function is indeterminate ast it was not assessed.. Right Ventricle Right ventricular chamber dimension is normal. Right ventricular systolic function is normal. Left Atria Left atrial chamber dimension is mildly enlarged. Right Atria Right atrial chamber dimension is mildly enlarged. Atrial Septum Agitated saline injection opacified right side cardiac chambers without shunt to left side cardiac chambers. Intact interatrial septum visualized by 2D, color flow and agitated saline imaging. Atrial Appendage There is no thrombus visualized in the left atrial appendage. Aortic Valve There is severe aortic valve stenosis with valve area of 0.9 cm2 by planimetry, and significant turbulent flow. The aortic valve is bicuspid. There is severe aortic valve sclerosis. There is moderate aortic valve regurgitation. Pulmonic Valve There is no pulmonic regurgitation. Mitral Valve There is no mitral valve stenosis. There is mild mitral valve regurgitation. Tricuspid Valve There is no tricuspid valve regurgitation. Pericardium/Pleural There is no pericardial effusion. Inferior Vena Cava Inferior vena cava is not well visualized. Aorta The aortic root size at the sinus of Valsalva is normal. Aortic Valve Name Value
--- NOTE | 2022-10-22 13:05 | SUR.PHASEII ---
Daughter at bedside. Discharge instructions given to both patient and daughter. Acknowledged understanding.
== END 2022-10-22 13:26 | disposition home or self-care (01) ==
PROVIDERS: PCP Family Medicine; Visit Provider Internal Medicine Cardiovascular Disease
PROC: (CPT 93312; principal; 2022-10-22 12:00)
DX: Q23.1 Congenital insufficiency of aortic valve (principal); I10 Essential (primary) hypertension; E78.5 Hyperlipidemia, unspecified; G47.33 Obstructive sleep apnea (adult) (pediatric); Z87.891 Personal history of nicotine dependence; Z79.82 Long term (current) use of aspirin
CPT/HCPCS: 93312; 93320; 93325; J2250; J3010

== ENCOUNTER 2022-11-02 00:31 | Day surgery (SDC) | payer MEDICARE, SELFPAY ==
[2022-11-02] VITALS (12 sets, daily range): BP systolic 122–171; BP diastolic 57–74; PULSE 57–70; RESP 12–22; TEMP 36.3; O2SAT 98–100; BMI 23.5
[2022-11-02 09:13] LABS: Basophils Percent Auto 0.7 % (0.2-1.2); Eosinophils Absolute Auto 0.1 K/mm3 (0-0.3); Eosinophils Percent Auto 1.9 % (0-4.4); Hematocrit 40.1 % (42.0-52.0); Immature Granulocyte Absolute 0.04 K/mm3 (0.00-0.031); Lymphocytes Percent Auto 33.9 % (18.3-44.2); Mean Corpuscular HGB Conc 32.4 g/dl (32-36); Mean Corpuscular Hemoglobin 30.7 pg (26-34); Mean Corpuscular Volume 94.6 fl (80-100); Mean Platelet Volume 9.7 fl (7.4-10.4); Monocytes Absolute Auto 0.5 K/mm3 (0.1-0.6); Monocytes Percent Auto 11.4 % (2.6-8.5); Neutrophils Absolute Auto 2.1 K/mm3 (1.3-6.7); Neutrophils Percent Auto 51.1 % (45.5-73.1); Platelet Count Result 156 k/mm3 (150-375); Red Blood Count 4.24 M/mm3 (4.6-6.20); Red Cell Distribution Width 13.2 % (11.5-14.5); White Blood Count 4.1 K/mm3 (4.5-10.0)
[2022-11-02 09:19] LABS: Anion Gap 8 mmol/L (8-16); Blood Urea Nitrogen 16 mg/dL (9-20); Calcium 8.7 mg/dL (8.4-10.2); Carbon Dioxide 28 mmol/L (22-30); Chloride 103 mmol/L (98-107); Estimated CRCL calculation 70 ml/min; Estimated Glomerular Filt Rate > 60; Glucose 80 mg/dL (65-110); Potassium 3.8 mmol/L (3.4-5.0); Sodium 139 mmol/L (137-145)
--- NOTE | 2022-11-02 10:23 | WPDHPUPDATE1 ---
History and Physical Update Update Date/Time: 11/02/22 10:23 History and Physical has been reviewed, including an updated exam of the patient. There are NO changes in the patient's condition. Risks, benefits, and alternatives have been discussed and questions answered. Patient agrees to proceed with procedure.
--- NOTE | 2022-11-02 10:24 | WPDMODSED ---
Moderate Sedation Note-Pt Data Patient Data Diagnosis: Severe aortic stenosis Present Complaint: Severe aortic stenosis Procedure to be performed/Plan: Coronary angiography, right heart cath, +/- PCI Allergies Allergy/AdvReac Type Severity Reaction Status Date / Time No Known Allergies Allergy Verified 11/02/22 08:48 Home Medications Medication Instructions Recorded Confirmed Type aspirin 81 mg tablet,delayed 81 mg PO DAILY 07/07/20 11/01/22 History release atorvastatin 80 mg tablet 80 mg PO DAILY #90 tabs 12/15/21 11/01/22 Rx lisinopril 20 mg tablet 20 mg PO DAILY #90 tabs 12/15/21 11/01/22 Rx omeprazole 40 mg capsule,delayed 40 mg PO BID 1 month #60 caps 05/14/22 11/01/22 Rx release hydrocortisone 2.5 % topical cream 1 applic RECTAL DAILY PRN 05/17/22 11/01/22 Rx with perineal applicator hemorrhoids #30 grams tamsulosin 0.4 mg capsule 0.4 mg PO DAILY #90 caps 06/08/22 11/01/22 Rx loratadine 10 mg tablet (Claritin) 10 mg PO DAILY 10/21/22 11/01/22 History magnesium 400 mg PO DAILY 10/21/22 11/01/22 History multivit with minerals-iron 18 1 tablet PO DAILY 10/21/22 11/01/22 History mg-folic ac 400 mcg-vit K 25 mcg tablet (Adults Multivitamin) omega 4-jrb-zag-fish oil 300 2 cap PO DAILY 10/21/22 11/01/22 History mg-1,000 mg capsule (Fish Oil) Current Medications: Active Medications Sodium Chloride (Normal Saline Iv) 500 mls @ 100 mls/hr IV CONT .Q5H HEATHER Sedation/Anesthesia: No previous sedation/anesthesia problems (including family history). [facility] Past Medical History Medical History Adenomatous colon polyp BPH (benign prostatic hyperplasia) Chronic throat clearing Colon cancer screening Dizziness Erosive gastritis GERD (gastroesophageal reflux disease) High cholesterol HTN (hypertension) Medial meniscus tear Nonrheumatic aortic (valve) stenosis Phlegm in throat Right knee pain Stroke Wears glasses Social History Social History Smoking packs per day: 1 Smoking cigarettes per day: 20.0 Years smoked: 20 Smoking pack-years: 20.00 Smoking status: Former smoker Tobacco type: cigarettes Smoking end date: 02/21/85 Alcohol intake: current Drinks per week: 4 Alcohol use details: 2-3 oz wine Substance use: never Substance use type: does not use Last use: 02/21/85 Living arrangements: with family Occupation/Education: retired Gender identity (if verbalized by the patient): Male Spiritual care concerns: No Mod Sed Physical Exam Physical Exam Pre Procedural Exam: Normal: Appearance, Lungs, Heart Rate, Heart Rhythm, Neuro Exam, Abdomen, Extremities and Skin Hours since solid foods: 12 Hours since liquid intake: 8 Mallampati Classification: class II Internal Medicine - PN: Obj Da Vital Signs Vital Signs: Vital Signs - 24 hr 11/02/22 09:00 Temperature 36.3 C L Pulse Rate 65 Respiratory Rate 18 Blood Pressure 145/65 H Pulse Oximetry 100 Oxygen Delivery Room Air Meds/Results Medications: Active Medications Generic Name Dose Route Start Last Admin Trade Name Freq PRN Reason Stop Dose Admin Sodium Chloride 500 mls @ 100 mls/hr 11/02/22 08:30 Normal Saline Iv IV CONT .Q5H HEATHER Labs 11/02/22 08:52 11/02/22 08:52 Labs: Laboratory Results - last 24 hr 11/02/22 08:52 WBC 4.1 L RBC 4.24 L Hgb 13.0 L Hct 40.1 L MCV 94.6 MCH 30.7 MCHC 32.4 RDW 13.2 Plt Count 156 MPV 9.7 Immature Gran % (Auto) 1.0 H Neut % (Auto) 51.1 Lymph % (Auto) 33.9 Hill % (Auto) 11.4 H Eos % (Auto) 1.9 Baso % (Auto) 0.7 Lymph # (Auto) 1.40 Hill # (Auto) 0.5 Eos # (Auto) 0.1 Baso # (Auto) 0.0 Abs Immat Gran (auto) 0.04 H Absolute Neuts (auto) 2.1 Absolute Nucleated RBC 0.0 Nucleated RBC % 0.0 Sodium 139 Potassium 3.8 Chloride 103 Carbon Dioxide 28 Anion Gap 8 BUN 16
--- NOTE | 2022-11-02 11:14 | WPDCARDPROC ---
Cardiac Cath Procedure Note Date of procedure:: 11/02/22 Performing physician:: CATHETERIZATION LABORATORY REPORT Procedure Date: 11/02/2022 Field Sales Consultant: Jesus Alston M.D., [facility]? Referring Physician: Dalton Su M.D. ? Anesthesia: Versed and Fentanyl were ordered and given in my presence at 10:22, procedure ended at 11:05. Supervision of nurse monitored moderate sedation with Versed and Fentanyl was provided for 43 minutes. Total of Versed 1mg and Fentanyl 50mcg were administered by the Student Advisor RN Shanae Samuels. Pre-op Diagnosis: Severe aortic stenosis Post-op Diagnosis: 1. Non-obstructive coronary artery disease 2. No pulmonary hypertension 3. Preserved cardiac output of 5.5 by Lydia 4. Preserved cardiac index of 2.9 by Lydia Procedure(s): 1. Moderate sedation 2. Ultrasound-guided access of the right femoral vein 3. Right heart cath 4. Ultrasound-guided access of the right radial artery 5. Coronary angiography Access Site: Right radial artery Right femoral vein Brief History and Clinical Indications: Patient is a 77 year old male who is referred for C/RHC for severe aortic stenosis. All risks, benefits and alternatives to left heart catheterization with or without percutaneous coronary intervention was discussed at length with the patient. Risk of complications including but not limited to bleeding, infection, arrhythmia, stroke, worsening kidney function, blood loss, groin hematoma, limb loss, emergency coronary artery bypass grafting, and even were discussed with the patient and all questions were answered. The patient understood and wished to proceed. Time out called, patient name, date of , medical record number, allergies, procedure performed, identify Field Sales Consultant, patient and staff member concurred with accurate data, procedure carried on. Findings: LEFT HEART CATHETERIZATION FINDINGS: 1. Left main: The left main coronary artery is widely patent without any significant obstructive disease. 2. Left anterior descending: The LAD has mild diffuse disease with a moderate 50% stenosis in the mid portion; no significant obstructive angiographic disease. The first diagonal branch has a moderate ostial stenosis with remainder of the vessel having diffuse mild disease. The second diagonal branch has diffuse mild disease. 3. Left circumflex: The left circumflex artery has mild diffuse disease without any significant obstructive angiographic disease. OM-1 has moderate ostial stenosis. 4. Right coronary artery: The RCA is the dominant vessel. The RCA has diffuse mild disease without any significant obstructive angiographic disease. 5. Left ventricle: The aortic valve was not crossed due to known severe aortic stenosis. RIGHT HEART CATHETERIZATION FINDINGS: Pressures (mmHg): RA: 6 RV: 30/9 PA: 30/13 with mean of 19mmHg PCWP: 14 Saturations (%): PA: 69.3 Arterial: 93.9 CO/CI: Lydia CO: 5.5 Lydia CI: 2.9 PVR (SMITH): 0.9 Description of Procedure: Informed consent signed and placed in the chart. Patient transferred to blood bank laboratory professional room. Prepped and draped in usual sterile fashion. 2% lidocaine injected subcutaneously in right groin area. Right femoral vein was accessed using micropuncture technique under ultrasound guidance. 7-FR sheath placed. 7F Oldhams-Luis catheter was advanced into the right side of the heart chambers and pressures were measured. 2% lidocaine injected subcutaneously in right wrist area. 22-gauge venipuncture catheter used to access the right radial artery under ultrasound guidance. 6-FR slender sheath placed in right radial artery. Nitroglycerine and Verapamil were given intraarterial through the sheath. Versacore wire advanced under fluoroscopy 5F Tig 4 diagnostic catheter engaged Left Main Coronary Artery. 5F FR 4 diagnostic catheter engaged Right Coronary Artery Multiple orthogonal angiogram obtained and reviewed Arterial hemostasis was achieved by application of TR ba
--- NOTE | 2022-11-02 13:48 | SUR.PREOP ---
online sales floor team leader used to obtain consent. Patients preferred language is Pashto.
--- NOTE | 2022-11-02 13:49 | SUR.PHASEII ---
online adjunct teacher used to discuss results of outpatient procedure.
--- NOTE | 2022-11-02 13:50 | SUR.PHASEII ---
discharge instructions talked through with patients daughter at bedside. Patient and daughter verbalize understanding of discharge instructions.
== END 2022-11-02 14:23 | disposition home or self-care (01) ==
PROVIDERS: PCP Family Medicine; Visit Provider Internal Medicine
PROC: (CPT 93566; principal; 2022-11-02 10:00)
DX: I35.0 Nonrheumatic aortic (valve) stenosis (principal); I25.10 Atherosclerotic heart disease of native coronary artery without angina pectoris; I10 Essential (primary) hypertension; E78.00 Pure hypercholesterolemia, unspecified; N40.0 Benign prostatic hyperplasia without lower urinary tract symptoms; K21.9 Gastro-esophageal reflux disease without esophagitis; Z86.73 Personal history of transient ischemic attack (TIA), and cerebral infarction without residual deficits; Z87.891 Personal history of nicotine dependence; Z79.82 Long term (current) use of aspirin
CPT/HCPCS: 36415; 80048; 85025; 93456; A9270; C1769; C1887; C1894; J1644; J2250; J2305; J3010; J7040

== ENCOUNTER 2022-11-25 08:46 | Outpatient (CLI) | payer MEDICARE, SELFPAY ==
[2022-11-25 09:52] LABS: Cholesterol 130 mg/dL (0-200); HDL Direct 45 mg/dL; Triglycerides 81 mg/dL (<150)
[2022-11-25 10:03] LABS: LDL Cholesterol Direct 62 mg/dL
== END 2022-11-25 08:47 | disposition home or self-care (01) ==
PROVIDERS: PCP Family Medicine; Visit Provider Family Medicine
DX: E78.5 Hyperlipidemia, unspecified (principal); I10 Essential (primary) hypertension
CPT/HCPCS: 36415; 80061

== ENCOUNTER 2023-05-12 09:45 | Outpatient (RCR) | payer MEDICARE, SELFPAY | END 2023-05-12 11:20 | disposition home or self-care (01) | LOC: ANHCPREHAB 09:45 | PROVIDERS: PCP Family Medicine; Visit Provider Internal Medicine Cardiovascular Disease | DX: Z95.2 Presence of prosthetic heart valve (principal) | CPT/HCPCS: 93798 ==

== ENCOUNTER 2023-06-06 08:08 | Outpatient (CLI) | payer MEDICARE, SELFPAY ==
[2023-06-06 08:51] LABS: Alanine Aminotransferase 24 U/L (6-50); Albumin Level 4.2 g/dL (3.5-5.1); Alkaline Phosphatase 70 U/L (38-126); Anion Gap 4 mmol/L (4-12); Aspartate Amino Transferase 28 U/L (17-59); Bilirubin,Total 1.1 mg/dL (0.2-1.3); Blood Urea Nitrogen 14 mg/dL (9-20); Calcium 9.2 mg/dL (8.4-10.2); Carbon Dioxide 30 mmol/L (22-30); Chloride 105 mmol/L (98-107); Estimated Glomerular Filt Rate > 60; Glucose 97 mg/dL (65-110); Sodium 139 mmol/L (137-145)
== END 2023-06-06 08:09 | disposition home or self-care (01) ==
PROVIDERS: PCP Family Medicine; Visit Provider Family Medicine
DX: I10 Essential (primary) hypertension (principal)
CPT/HCPCS: 36415; 80053